=== PATIENT | female | born 1960 | race Caucasian/White ===

== ENCOUNTER → 2021-02-23 | Outpatient (CLI) | payer OTHER ==
[~2021-02-23] VITALS: Ht 162.6 cm; Wt 90.7 kg
[~2021-02-23] MED LIST: ACET325T9 PO; FAMO20TA5 PO; SINCALIDE 1.81 MCG in IV NORMAL SALINE 50ML 30 ML IV ONE; [UNRECOGNIZED DRUG - CODE] MC
--- NOTE | 2021-02-23 14:52 | RAD ---
EXAM: Nuclear hepatobiliary scan. HISTORY: Epigastric pain. TECHNIQUE: Following intravenous administration of 5.5 mCi Tc 99m Choletec, anterior images of the ab domen were obtained at five minute intervals through one hour. Subsequently, 1.8 mcg sincalide was ad ministered and additional images to assess gallbladder ejection fraction were obtained. FINDINGS: There is prompt radiotracer uptake by the liver. No focal defect is seen. There is normal e xcretion into the biliary tree. The gallbladder is visualized within 5 minutes and there is free flow into the duodenum. The gallbladder ejection fraction is 87 percent. IMPRESSION: Elevated gallbladder ejection fraction of 87 percent. Electronically signed by: Ruthie Vizcarra MD (02/23/2021 2:50 PM) [id number]
== END ==
LOC: NM 09:33
PROVIDERS: ATTEND Internal Medicine Gastroenterology
DX: R10.13 Epigastric pain (principal); R10.33 Periumbilical pain
CPT/HCPCS: 78227; A9537; J2805